=== PATIENT | female | born 1955 | race Caucasian/White ===

== ENCOUNTER → 2016-11-29 | Outpatient (CLI) | payer SELFPAY ==
--- NOTE | 2016-11-29 12:00 | RAD ---
2 view CXR: Clinical indications: Biliary cirrhosis. Comparison: May 07, 2010. Findings: Chronic interstitial lung disease is seen. No new lung infiltrate or pleural effusion or new pulmonary edema or lung mass or pneumothorax is seen. The heart size, pulmonary vasculature, mediastinum and both son are stable given AP magnification. The osseous structures appear intact. Impression: No acute radiographic abnormality is seen.
== END | disposition home or self-care (01) ==
LOC: DXRADRC 11:26
PROVIDERS: ATTEND Physician Assistant Medical
DX: K74.5 Biliary cirrhosis, unspecified (principal); J84.9 Interstitial pulmonary disease, unspecified
CPT/HCPCS: 71020

== ENCOUNTER 2017-07-05 19:12 | Inpatient (IN) | payer MEDICARE, OTHER ==
[~2017-07-05] VITALS: Ht 177.8 cm; Wt 105.8 kg
--- NOTE | 2017-07-05 19:19 | ED.ADGEN ---
Past History Past Medical History: CAD, CHF, COPD, Hypertension, Other Smoking: Cigarettes Adult General Chief Complaint Chief Complaint ".. I ve been coughing a lot more the last 3 days.. I am wore out... " HPI HPI Patient is a 62 year old female who presents with above hx and complaints dyspnea, chest pain, cough, and generalized weakness the last three days. Pt. Sats on arrival 80's patient has no home oxygen. No recent travel or specific ill contacts. Does have a history of COPD , hypertension and coronary artery disease. She has approximately 62-154-hzdx-year smoking history. Patient states she has not had productive sputum with for coughing episodes. Is having some mild mid chest tenderness with coughing and had chest pain yesterday. Patient normally follows with [facility] for care. Review of Systems Review of Systems Constitutional: Hx. fever or chills [] Eyes: Denies change in visual acuity, redness, or eye pain [] HENT: Denies nasal congestion or sore throat [] Respiratory: Hx. of cough or shortness of breath [] Cardiovascular: No additional information not addressed in HPI [] GI: Denies abdominal pain, nausea, vomiting, bloody stools or diarrhea [] : Denies dysuria or hematuria [] Musculoskeletal: Denies back pain or joint pain [] Integument: Denies rash or skin lesions [] Neurologic: Denies headache, focal weakness or sensory changes [] Endocrine: Denies polyuria or polydipsia [] All other systems were reviewed and found to be within normal limits, except as documented in this note. Family History Family History Noncontributory Current Medications Current Medications Current Medications Medications (Trade) Dose Ordered Sig/Saida Start Time Stop Time Status Last Admin Dose Admin Albuterol/ Ipratropium (Duoneb) 3 ml 1X ONCE 07/05/17 19:30 07/05/17 19:39 DC 07/05/17 20:01 3 ML Aspirin (Children'S Aspirin) 324 mg 1X ONCE 07/05/17 19:30 07/05/17 19:39 DC 07/05/17 19:30 324 MG Ceftriaxone Sodium (Rocephin) 1 gm Q24H 07/05/17 23:00 07/06/17 04:53 1 GM Enoxaparin Sodium (Lovenox 100mg Syringe) 100 mg 1X ONCE 07/05/17 19:30 07/05/17 19:39 DC 07/05/17 19:30 100 MG Furosemide (Lasix) 40 mg 1X ONCE 07/05/17 23:00 07/05/17 23:01 DC 07/06/17 00:51 40 MG Info (Anti-Coagulation Monitoring By Pharmacy) 1 each PRN DAILY PRN 07/05/17 23:00 Lactated Ringer's 1,000 ml @ 100 mls/hr Q10H 07/05/17 19:29 07/06/17 05:29 DC 07/05/17 19:29 100 MLS/HR Magnesium Sulfate 50 ml @ 25 mls/hr 1X ONCE 07/05/17 23:00 07/06/17 00:59 DC 07/06/17 00:52 25 MLS/HR Methylprednisolone Sodium Succinate (SOLU-Medrol 125MG VIAL) 125 mg 1X ONCE 07/05/17 23:00 07/05/17 23:01 DC 07/06/17 00:51 125 MG Potassium Chloride (KCl Oral Soln) 40 meq 1X ONCE 07/05/17 23:00 07/05/17 23:01 DC 07/06/17 00:52 40 MEQ Allergies Allergies Allergies Coded Allergies Type Severity Reaction Last Updated Verified propoxyphene Allergy Intermediate 07/05/17 Yes Physical Exam Physical Exam Constitutional: In acute distress, non-toxic appearance. [] HENT: Normocephalic, atraumatic, bilateral external ears normal, oropharynx moist, no oral exudates, nose rhinorrhea Eyes: PERRLA, EOMI, conjunctiva normal, no discharge. [] Neck: Normal range of motion, no tenderness, supple, no stridor. [] Cardiovascular:Heart rate regular rhythm, no murmur [] Lungs & Thorax: Bilateral breath sounds equal with scattered wheezes and rhonchi on auscultation [] Abdomen: Bowel sounds normal, soft, no tenderness, no masses, no pulsatile masses. [] Skin: Warm, dry, no erythema, no rash. [] Poor turgor Back: No tenderness, no CVA tenderness. [] Extremities: No tenderness, no cyanosis, no clubbing, ROM intact, lower leg edema. [] No cording appreciated Neurologic: Alert and oriented X 3, No gross motor or sensory function deficits , no focal deficits noted. [] Psychologic: Affect anxious ,judgement normal, mood normal. [] Current Patient Data Vital Signs Vital Signs Date Time Temp Pulse Resp B/P (MAP) Pulse Ox O2 Delivery O2 Flow Rate FiO2 07/05/17 20:03 94 Nasal Cannula 2.0 Lab Results Laboratory Tests Test 07/05/17 19:40 07/05/17 20:24 07/05/17 21:47 White Blood Count 7.1 x10^3/uL (4.0-11.0) Red Blood Count 5.38 x10^6/uL (3.50-5.40) Hemoglobin 14.5 g/dL (12.0-15.5) Hematocrit 43.6 % (36.0-47.0) Mean Corpuscular Volume 81 fL (79-100) Mean Corpuscular Hemoglobin 27 pg (25-35) Mean Corpuscular Hemoglobin Concent 33 g/dL (31-37) Red Cell Distribution Width 15.0 % (11.5-14.5) H Platelet Count 246 x10^3/uL (140-400) Neutrophils (%) (Auto) 73 % (31-73) Lymphocytes (%) (Auto) 16 % (24-48) L Monocytes (%) (Auto) 8 % (0-9) Eosinophils (%) (Auto) 2 % (0-3) Basophils (%) (Auto) 1 % (0-3) Neutrophils # (Auto) 5.2 x10^3uL (1.8-7.7) Lymphocytes # (Auto) 1.1 x10^3/uL (1.0-4.8) Monocytes # (Auto) 0.6 x10^3/uL (0.0-1.1) Eosinophils # (Auto) 0.2 x10^3/uL (0.0-0.7) Basophils # (Auto) 0.1 x10^3/uL (0.0-0.2) Segmented Neutrophils % 73 % (35-66) H Lymphocytes % 16 % (24-48) L Monocytes % 7 % (0-10) Basophils % 4 % (0-3) H Platelet Estimate Adequate (ADEQUATE) Platelet Clumps, EDTA Present Large Platelets Occ Polychromasia Slight Ovalocytes Occ Schistocytes Occ Prothrombin Time 9.9 SEC (9.4-11.4) Prothrombin Time INR 1.0 (0.9-1.1) PTT 25 SEC (23-33) D-Dimer (Cinthia) 0.57 mg/L (0.00-0.50) H Blood pH 7.48 (7.35-7.45) H Blood Gas PCO2 60 mmHg (35-45) H Blood Gas PO2 42 mmHg (80-100) *L Blood Gas HCO3 44 mmol/L (22-26) H Arterial Bld O2 Saturation (Calc) 79 % (92-99) L FiO2 21 % Troponin I Quantitative 0.040 ng/mL (0-0.055) Urine Collection Type Unknown Urine Color Straw Urine Clarity Clear Urine pH 6.5 Urine Specific [place] <=1.005 Urine Protein Neg (NEG-TRACE) Urine Glucose (UA) Neg mg/dL (NEG) Urine Ketones (Stick) Neg mg/dL (NEG) Urine Blood Neg (NEG) Urine Nitrite Neg (NEG) Urine Bilirubin Neg (NEG) Urine Urobilinogen Dipstick 1 mg/dL (0.2 mg/dL) Urine Leukocyte Esterase Neg (NEG) Urine RBC 0 /HPF (0-2) Urine WBC Occ /HPF (0-4) Urine Squamous Epithelial Cells Occ /LPF Urine Bacteria Few /HPF (0-FEW) Urine Opiates Screen Neg (NEG) Urine Methadone Screen Neg (NEG) Urine Barbiturates Neg (NEG) Urine Phencyclidine Screen Neg (NEG) Urine Amphetamine/Methamphetamine Neg (NEG) Urine Benzodiazepines Screen Neg (NEG) Urine Cocaine Screen Neg (NEG) Urine Cannabinoids Screen Neg (NEG) Urine Ethyl Alcohol Neg (NEG) Sodium Level 142 mmol/L (136-145) Potassium Level 2.4 mmol/L (3.5-5.1) *L Chloride Level 100 mmol/L (98-107) Carbon Dioxide Level 41 mmol/L (21-32) H Anion Gap 1 (6-14) L Blood Urea Nitrogen 10 mg/dL (7-20) Creatinine 0.6 mg/dL (0.6-1.0) Estimated GFR (Cockcroft-Gault) 100.6 Glucose Level 105 mg/dL (70-99) H Calcium Level 7.9 mg/dL (8.5-10.1) L Magnesium Level 1.5 mg/dL (1.8-2.4) L Total Bilirubin 0.4 mg/dL (0.2-1.0) Direct Bilirubin < 0.1 mg/dL (0.0-0.2) Aspartate Amino Transferase (AST) 13 U/L (15-37) L Alanine Aminotransferase (ALT) 14 U/L (14-59) Alkaline Phosphatase 102 U/L (46-116) Creatine Kinase 50 U/L (26-192) Creatine Kinase MB (Mass) 1.2 ng/mL (0.0-3.6) Creatine Kinase MB Relative Index 2.4 % (0-4) GR-Luy-J-Type Natriuretic Peptide 1211 pg/mL (0-124) H Total Protein 5.7 g/dL (6.4-8.2) L Albumin 2.4 g/dL (3.4-5.0) L Lipase 71 U/L (73-393) L EKG EKG My interpretation of EKG shows sinus rhythm at 85 bpm. There is left ordered axis deviation and a fascicular block. Abnormal EKG. [] Radiology/Procedures Radiology/Procedures My interpretation of chest x-ray shows[] emphysema/COPD type changes. Does appear to have a right lower lobe infiltrate or pneumonia. Does have increased cephalization consistent with CHF. CT of chest pending at time of admission. Course & Med Decision Making Course & Med Decision Making Pertinent Labs and Imaging studies reviewed. (See chart for details). Discussed presentation, testing and treatment plan with Dr. Campbell. for further evaluation and treatment. [] Final Impression Final Impression 1. Respiratory Failure[]-hypoxia and elevate CO 2 2. Right lower lobe pneumonia 3. CHF- BNP 1211 4. Hypokalemia 2.4 5. Hypo-magnesium 1,5 6. Elevated D-dimer 7. Schistocytes 8. COPD /Emphysema- exacerbation Dragon Disclaimer Dragon Disclaimer This electronic medical record was generated, in whole or in part, using a voice recognition dictation system. JUAN HERNANDEZ MD July 05, 2017 19:19
[2017-07-05] MEDS ORDERED: IV RINGERS SOLUTION,LACTATED 1,000 ML IV SCH (19:29)
[2017-07-05] MEDS ORDERED: ASPIRIN 81 MG TAB.CHEW PO ONE (19:30)
[2017-07-05] MEDS ORDERED: IPRATRPIUM/ALBUTEROL 0.5/2.5MG 3 ML NEBU. NEB ONE (19:30)
[2017-07-05] MEDS ORDERED: ENOXAPARIN ** NOTE DOSE ** SYRINGE SQ ONE (19:30)
[2017-07-05 19:52] LABS: BGAS PH 7.48 (7.35-7.45)
[2017-07-05 20:13] LABS: BASO # 0.1 x10^3/uL (0.0-0.2); BASO % 1 % (0-3); EOS # 0.2 x10^3/uL (0.0-0.7); EOS % 2 % (0-3); HEMATOCRIT 43.6 % (36.0-47.0); HEMOGLOBIN 14.5 g/dL (12.0-15.5); LYMPH # 1.1 x10^3/uL (1.0-4.8); LYMPH % 16 % (24-48); MEAN CORPUSCULAR HEMOGLOBIN 27 pg (25-35); MEAN CORPUSCULAR HGB CONC 33 g/dL (31-37); MEAN CORPUSCULAR VOLUME 81 fL (79-100); MONO # 0.6 x10^3/uL (0.0-1.1); MONO % 8 % (0-9); NEUT # 5.2 x10^3uL (1.8-7.7); NEUT % 73 % (31-73); PLATELET COUNT 246 x10^3/uL (140-400); RED BLOOD COUNT 5.38 x10^6/uL (3.50-5.40); WHITE BLOOD COUNT 7.1 x10^3/uL (4.0-11.0)
[2017-07-05 20:58] LABS: AMPHETAMINE/METHAMPHETAMINE NEG (NEG); BARBITURATES NEG (NEG); BENZODIAZEPINES NEG (NEG); CANNABINOIDS NEG (NEG); COCAINE NEG (NEG); METHADONE NEG (NEG); OPIATES NEG (NEG); PHENCYCLIDINE NEG (NEG)
[2017-07-05 21:03] LABS: BACTERIA,URINE FEW /HPF (0-FEW); BILIRUBIN,URINE NEG (NEG); CLARITY,URINE CLEAR; COLOR,URINE STRAW; GLUCOSE,URINE NEG (NEG); NITRITE,URINE NEG (NEG); RBC,URINE 0 /HPF (0-2); SQUAMOUS EPITHELIAL CELL,UR OCC /LPF; UROBILINOGEN,URINE 1 mg/dL (0.2 mg/dL); WBC,URINE OCC /HPF (0-4)
[2017-07-05 21:13] LABS: % BASOS 4 % (0-3); % LYMPHS 16 % (24-48); % MONOS 7 % (0-10); % SEGS 73 % (35-66)
[2017-07-05 21:14] LABS: PLATELET CLUMP PRESENT; PLT ESTIMATE ADEQUATE (ADEQUATE); POLYCHROMASIA SLIGHT
[2017-07-05 21:15] LABS: OVALOCYTES OCC; SCHISTOCYTES OCC
--- NOTE | 2017-07-05 22:27 | EKG ---
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
[2017-07-05 22:33] LABS: ALBUMIN 2.4 g/dL (3.4-5.0); ALK PHOS 102 U/L (46-116); ALT (SGPT) 14 U/L (14-59); ANION GAP 1 (6-14); AST (SGOT) 13 U/L (15-37); BLOOD UREA NITROGEN 10 mg/dL (7-20); CALCIUM 7.9 mg/dL (8.5-10.1); CARBON DIOXIDE 41 mmol/L (21-32); CHLORIDE 100 mmol/L (98-107); CREATININE 0.6 mg/dL (0.6-1.0); GFR 100.6; GLUCOSE 105 mg/dL (70-99); LIPASE 71 U/L (73-393); MAGNESIUM 1.5 mg/dL (1.8-2.4); SODIUM 142 mmol/L (136-145); TOTAL BILIRUBIN 0.4 mg/dL (0.2-1.0); TOTAL PROTEIN 5.7 g/dL (6.4-8.2)
[2017-07-05 22:34] LABS: DIRECT BILIRUBIN < 0.1 mg/dL (0.0-0.2)
[2017-07-05 22:35] LABS: POTASSIUM 2.4 mmol/L (3.5-5.1)
[2017-07-05] MEDS ORDERED: FUROSEMIDE 40 MG TABLET PO ONE (23:00)
[2017-07-05] MEDS ORDERED: ANTI-COAG MONITOR BY PHARMACY. MC PRN (23:00)
[2017-07-05] MEDS ORDERED: POTASSIUM CHLORIDE 20 MEQ/15 ML ORAL LIQUID. PO ONE (23:00)
[2017-07-05] MEDS ORDERED: methylPREDNISolone SOD SUCC PF 125 MG/2 ML VIAL. IV ONE (23:00)
[2017-07-05] MEDS ORDERED: MAGNESIUM SULFATE 2GM 50 ML IV ONE (23:00)
[2017-07-05] MEDS ORDERED: IOHEXOL 300 MG/ML 75 ML VIAL. IV ONE (23:15)
[2017-07-06] VITALS (7 sets, daily range): BP systolic 83–120; BP diastolic 47–71
--- NOTE | 2017-07-06 01:29 | RAD ---
PQRS Compliance Statement: One or more of the following individualized dose reduction techniques were utilized for this examination: 1. Automated exposure control 2. Adjustment of the mA and/or kV according to patient size 3. Use of iterative reconstruction technique CT CHEST WITH CONTRAST, PULMONARY ANGIOGRAM History: Respiratory failure. Shortness of air. Comparison: None. Technique: Helical CT of the chest was performed after the administration of 75 cc of Omnipaque 300 intravenous contrast according to PE protocol. Axial and coronal reconstructions were obtained. 3-D MIP images were constructed to better evaluate the pulmonary arteries. Findings: Pulmonary arteries are adequately opacified. There is no evidence of pulmonary embolism. There is no thoracic aortic dissection. Tiny hypodense nodule in the posterior left thyroid lobe. Subcentimeter mediastinal lymph nodes. There is superior pericardial recess fluid. Coronary artery disease. Cardiac size upper limits of normal. No pericardial effusion. There is small hiatal hernia. The central airways are patent. There is right lower lobe peribronchial thickening. There is moderate upper lobe centrilobular emphysema. Mild patchy consolidation and groundglass opacities in the right lower lobe. There is upper lung interlobular septal thickening. Minimal opacity with flecks of air in the left bronchus intermedius may be retained secretions or mucous. No pleural effusion or pneumothorax. 3.3 cm left hepatic lobe cyst. There are surgical clips and suture material of the stomach. No acute compression fracture of the thoracic spine. IMPRESSION: 1. There is no CT evidence of pulmonary embolus. 2. Right lower lobe bronchitis and early bronchopneumonia or atelectasis. 3. Upper lung interlobular septal thickening suggests interstitial edema. 4. Moderate upper lobe centrilobular emphysema. Electronically signed by: Erick Isidro MD (07/06/2017 1:25 AM) [place] [id number]
[2017-07-06] MEDS ORDERED: FURO-68 PO (02:08)
[2017-07-06] MEDS ORDERED: POTA10TA17 PO (02:08)
[2017-07-06] MEDS ORDERED: CHOL100013 PO (02:08)
[2017-07-06] MEDS ORDERED: RANI150T21 PO (02:08)
[2017-07-06] MEDS ORDERED: SPIR100T2 PO (02:08)
[2017-07-06] MEDS ORDERED: MULT1TAB52 PO (02:08)
[2017-07-06] MEDS ORDERED: LACT10SO PO (02:08)
[2017-07-06] MEDS: cefTRIAXone IV Push 1 GM VIAL. IVP SCH ×2 (04:53→23:28)
[2017-07-06] MEDS: IPRATRPIUM/ALBUTEROL 0.5/2.5MG 3 ML NEBU. NEB SCH ×4 (06:02→21:18)
[2017-07-06 07:13] LABS: BASO # 0.1 x10^3/uL (0.0-0.2); BASO % 1 % (0-3); EOS % 0 % (0-3); HEMATOCRIT 42.6 % (36.0-47.0); HEMOGLOBIN 13.9 g/dL (12.0-15.5); LYMPH # 0.3 x10^3/uL (1.0-4.8); LYMPH % 5 % (24-48); MEAN CORPUSCULAR HEMOGLOBIN 27 pg (25-35); MEAN CORPUSCULAR HGB CONC 33 g/dL (31-37); MEAN CORPUSCULAR VOLUME 82 fL (79-100); MONO # 0.1 x10^3/uL (0.0-1.1); MONO % 1 % (0-9); NEUT % 94 % (31-73); PLATELET COUNT 217 x10^3/uL (140-400); RED BLOOD COUNT 5.21 x10^6/uL (3.50-5.40); WHITE BLOOD COUNT 6.4 x10^3/uL (4.0-11.0)
[2017-07-06 07:14] LABS: CALCIUM 7.7 mg/dL (8.5-10.1); CREATININE 0.7 mg/dL (0.6-1.0); GFR 84.2
[2017-07-06 07:26] LABS: POTASSIUM 2.7 mmol/L (3.5-5.1)
[2017-07-06] MEDS: POTASSIUM CHLORIDE 20 MEQ TABLET.ER. PO SCH ×4 (08:04→11:05)
[2017-07-06] MEDS: ASPIRIN 81 MG TAB.CHEW PO SCH (08:04)
[2017-07-06 08:30] LABS: HYPOCHROMIA SLIGHT; PLATELET CLUMP PRESENT; PLT ESTIMATE ADEQUATE (ADEQUATE); POLYCHROMASIA PRESENT
[2017-07-06 08:32] LABS: OVALOCYTES OCC; SCHISTOCYTES OCC
[2017-07-06] MEDS ORDERED: CHOLECALCIFEROL (VITAMIN D3) 50,000 UNIT CAPSULE PO SCH (09:00)
[2017-07-06] MEDS ORDERED: ENOXAPARIN 40 MG/0.4 ML SYRINGE. SQ SCH (09:00)
[2017-07-06] MEDS ORDERED: methylPREDNISolone SOD SUCC PF 125 MG/2 ML VIAL. IV SCH (09:00)
[2017-07-06] MEDS ORDERED: ENOXAPARIN ** NOTE DOSE ** SYRINGE SQ SCH (09:00)
[2017-07-06] MEDS: LACTOBACILLUS RHAMNOSUS GG 1 CAPSULE. PO SCH ×2 (09:01→20:26)
[2017-07-06] MEDS: SPIRONOLACTONE 25 MG TABLET PO SCH (09:01)
[2017-07-06] MEDS: LACTULOSE 20 GM/30 ML SOLUTION. PO SCH ×2 (09:02→20:25)
[2017-07-06] MEDS: FAMOTIDINE 20 MG TABLET PO SCH ×2 (09:02→20:26)
[2017-07-06] MEDS: MULTIVITAMIN with MINERAL TABLET. PO SCH (09:02)
[2017-07-06] MEDS: AZITHROMYCIN 250 MG TABLET. PO SCH (09:02)
--- NOTE | 2017-07-06 09:17 | RAD ---
CHEST PA LATERAL History: Shortness of air Comparison: 11/29/2016 Findings: 2 views of the chest are submitted. There is emphysema. Degree of interstitial opacity is similar, basilar predominance. Heart size is stable, somewhat prominent. There is no pneumothorax or new lobar consolidation. There is no significant dependent pleural fluid. Impression: 1. There is emphysema. Interstitial opacity with basilar predominance is similar to November 2016 exam. Electronically signed by: Hector Ramirez MD (07/06/2017 9:13 AM) [facility]
--- NOTE | 2017-07-06 12:26 | RAD ---
Bilateral lower extremity venous Doppler dated 07/06/2017. No comparison available. Clinical data indication: Elevated d-dimer. Edema. FINDINGS: Grayscale, color-flow and spectral waveform analysis performed. Normal compressibility, phasicity and augmentation of flow throughout. No filling defects are seen. IMPRESSION: No evidence of lower extremity deep vein thrombosis. Electronically signed by: Jose Olmos MD (07/06/2017 12:23 PM) [facility] [place]
[2017-07-06] MEDS: methylPREDNISolone SOD SUCC PF 40 MG/ML VIAL. IV SCH (17:28)
--- NOTE | 2017-07-06 18:30 | HP ---
ADMIT DATE: 07/05/2017 HISTORY OF PRESENT ILLNESS: This is a 62-year-old female patient who came to the Emergency Room complaining of cough with scanty whitish sputum as well as shortness of breath, generalized weakness for the last 3 days. On arrival to the Emergency Room, her oxygen saturation was only 80% on room air. Denied any recent travel or specific ill contact. She does have history of COPD. She continued to smoke 1-2 packs a day. Denied any chest pain, chills, rigors or fever. She was extensively investigated in the Emergency Room, was found to have mildly elevated D-dimer. Had had a chest x-ray and a CT scan of the chest with PE protocol. She was admitted with right lower lobe pneumonia, COPD exacerbation and acute hypoxic respiratory failure. PAST MEDICAL HISTORY: Significant for COPD, congestive heart failure, primary biliary cirrhosis, osteoarthritis, and peripheral neuropathy. She also has morbid obesity for which she underwent gastric bypass surgery. She lost about almost 250 pounds from 400-157, although her weight has been fluctuating. PAST SURGICAL HISTORY: Significant for bypass surgery, multiple several hernia repairs, tonsillectomy, cholecystectomy, bilateral carpal tunnel release. ALLERGIES: She is allergic to DARVON and ADHESIVES. FAMILY HISTORY: She in fact has no full brothers or sisters. She does not know her biological father. Her mother at age of 84 because of congestive heart failure. SOCIAL HISTORY: She is . She lives with her granddaughter. She has 2 adopted sons. She smokes about 1-2 packs per day and does not drink alcohol. 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 REVIEW OF SYSTEMS: The patient denied any blurring of vision, cataract, glaucoma or macular degeneration. Denied any earache, tinnitus or sensorineural deafness. Denied any nosebleeds, stuffy nose or postnasal drip. Denied any sore throat, sore tongue, toothache, hoarseness of voice or difficulty swallowing. She denied any nausea, vomiting, diarrhea or constipation. Denied any hematemesis, melena or hematochezia. Denied any dysuria, frequency or hematuria. Did complain of chest pain, shortness of breath, orthopnea, and paroxysmal nocturnal dyspnea. She has cough with scanty whitish sputum. Denied any chills, rigors, or fever. Denied any dizziness, lightheadedness, or vertigo. PHYSICAL EXAMINATION: GENERAL: On arrival to the Emergency Room, there was no pallor. She is actually seemed to be almost hyperpigmented, but there is no jaundice, cyanosis, or thyromegaly. No jugular distention, but mild bilateral lower limb edema. VITAL SIGNS: Her heart rate was 86, blood pressure 136/77, temperature was 98.6, respiratory rate was 25, and oxygen saturation was 88% on room air, it improved to 94% on 2 liters of oxygen. HEAD, EYES, EARS, NOSE AND THROAT: Showed normocephalic, atraumatic. NECK: Supple. HEART: Showed normal first and second heart sounds with no gallop, rub or murmur. CHEST: Shows central trachea, equally reduced expansion, reduced air entry, vesicular breath sounds. I could not really appreciate any crepitation or rhonchi. ABDOMEN: Distended, soft, nontender. No guarding or rigidity. No organomegaly. Hernial orifice intact. Bowel sounds normal. NEUROLOGIC: She was awake, alert, responding appropriately. Cranial nerves intact. EXTREMITIES: She moves extremities without difficulty, though she is mostly wheelchair bound. LABORATORY AND DIAGNOSTIC DATA: On admission showed a white cell count 7100, hemoglobin 14.5, hematocrit 44, MCV 81 and platelet count 246,000. Manual differential shows 73% polymorphs, 16% lymphocytes and 8% monocytes. Her pH was 7.48, pCO2 of 60, pO2 42, bicarbonate of 44 and oxygen saturation was only 79% on room air. Her prothrombin time was 9.9, INR of 1, aPTT was 25. D-dimer slightly elevated at 0.57 mg/dL. Her chemistry showed that her serum sodium was 142, potassium 2.4, chloride 100, bicarbonate 41, anion gap of 1, BUN 10, creatinine 0.6, estimated GFR was 100 mL per minute. Her glucose was 105, calcium was 7.9, magnesium was 1.5. Total bilirubin, AST, ALT, alkaline phosphatase were normal. Her troponin was 0.04, beta natriuretic peptide 1200, total protein 5.7, albumin 2.4. Lipase was 71, TSH was 1.894. Urinalysis showed the urine was straw colored, clear with a pH of 6.5, specific gravity of 1.005. The urine was negative for protein, glucose, ketones, blood, nitrite, and leukocyte esterase. 0 rbc's, occasional wbc's, very few bacteria. The urine toxicology screen was negative. Her chest x-ray showed that there is emphysema, degree of interstitial opacities, similar basilar predominance. Heart size is stable, somewhat prominent. There is no pneumothorax. No lobar consolidation. There is no significant dependent pleural fluid. Given that her D-dimer was slightly elevated, she is hypoxic. CT scan of the chest with PE protocol was done, which basically showed there is no CT evidence of pulmonary embolism, right lower lobe bronchitis, early bronchopneumonia or atelectasis. Her upper lung interlobular septal thickening is suggesting interstitial edema, moderate upper lobe centrilobular emphysema. ASSESSMENT AND PLAN: So, basically, the patient was admitted with community-acquired pneumonia/bronchopneumonia, chronic obstructive pulmonary disease exacerbation, and acute hypoxic hypercapnic respiratory failure. She has multiple other medical problems including congestive heart failure, primary biliary cirrhosis, peripheral neuropathy, osteoarthritis and scoliosis, it might be contributing to her respiratory difficulty. She has also continued to smoke unfortunately 2 packs a day. Plan is to continue with IV antibiotic in the form of Zithromax as well as ceftriaxone. I will change her methylprednisolone to be given 3 times a day. We will follow her labs and symptoms, and decide the further management accordingly. BARBARA RUIZ MD DR: MARCO/tony JOB#: [id number] / [id number]
[2017-07-06] MEDS ORDERED: POTASSIUM CHLORIDE 20 MEQ TABLET.ER. PO SCH (21:00)
[2017-07-07] MEDS: methylPREDNISolone SOD SUCC PF 40 MG/ML VIAL. IV SCH ×2 (00:37→08:33)
[2017-07-07 01:00] VITALS: BP 117/61
[2017-07-07] MEDS: IPRATRPIUM/ALBUTEROL 0.5/2.5MG 3 ML NEBU. NEB SCH ×4 (03:32→15:45)
[2017-07-07] MEDS ORDERED: ALBU8.5H8 INH (03:47)
[2017-07-07] MEDS ORDERED: BUDE10.2 IH (03:47)
[2017-07-07 06:00] VITALS: BP 105/49
[2017-07-07 06:39] LABS: HEMATOCRIT 39.1 % (36.0-47.0); HEMOGLOBIN 12.3 g/dL (12.0-15.5); RED BLOOD COUNT 4.73 x10^6/uL (3.50-5.40); RED CELL DISTRIBUTION WIDTH 15.1 % (11.5-14.5); WHITE BLOOD COUNT 7.6 x10^3/uL (4.0-11.0)
[2017-07-07 06:42] LABS: ALBUMIN 2.3 g/dL (3.4-5.0); ALBUMIN/GLOBULIN RATIO 0.6 (1.0-1.7); CALCIUM 7.2 mg/dL (8.5-10.1); CREATININE 0.6 mg/dL (0.6-1.0); GFR 100.6; POTASSIUM 3.7 mmol/L (3.5-5.1); TOTAL BILIRUBIN 0.2 mg/dL (0.2-1.0)
[2017-07-07] MEDS ORDERED: BUDESONIDE 0.5 MG/2 ML NEBU NEB SCH (08:00)
[2017-07-07] MEDS: LACTULOSE 20 GM/30 ML SOLUTION. PO SCH (08:32)
[2017-07-07] MEDS: AZITHROMYCIN 250 MG TABLET. PO SCH (08:32)
[2017-07-07] MEDS: SPIRONOLACTONE 25 MG TABLET PO SCH (08:32)
[2017-07-07] MEDS: MULTIVITAMIN with MINERAL TABLET. PO SCH (08:33)
[2017-07-07] MEDS: LACTOBACILLUS RHAMNOSUS GG 1 CAPSULE. PO SCH (08:33)
[2017-07-07] MEDS: ASPIRIN 81 MG TAB.CHEW PO SCH (08:33)
[2017-07-07] MEDS: FAMOTIDINE 20 MG TABLET PO SCH (08:33)
[2017-07-07] MEDS ORDERED: ENOXAPARIN 40 MG/0.4 ML SYRINGE. SQ SCH (09:00)
[2017-07-07] MEDS ORDERED: POTASSIUM CHLORIDE 20 MEQ/15 ML ORAL LIQUID. PO SCH (09:00)
[2017-07-07 11:25] VITALS: BP 96/60
--- NOTE | 2017-07-07 12:35 | PN ---
DATE: 07/06/2017 SUBJECTIVE: The patient is resting, sitting up in bed comfortably, in no apparent respiratory distress. On questioning her, she stated that she continued to have orthopnea, cough with scanty whitish sputum. Denied any chest pain, denied any chills, rigors or fever. PHYSICAL EXAMINATION: GENERAL: When I examined her, she looked well and was clearly in no apparent respiratory distress. She was somewhat tanned, but there is no jaundice or cyanosis. No lymphadenopathy, no thyromegaly. No jugular venous distension. She has mild bilateral limb edema. VITAL SIGNS: Her heart rate was 73, blood pressure was 105/51, temperature was 99.1, respiratory rate was 14 and oxygen saturation was 94% on 3 liters of oxygen by nasal cannula. HEAD, EYES, EARS, NOSE AND THROAT: Normocephalic, atraumatic. NECK: Supple. HEART: Showed normal first and second sounds. No gallop, rub or murmur. CHEST: Shows central trachea, equally reduced expansion, reduced air entry, vesicular sounds. I could not really appreciate any crepitation or rhonchi. ABDOMEN: Slightly distended, soft. NEUROLOGIC: She is awake, alert, responding appropriately. All cranial nerves intact. EXTREMITIES: She moves extremities without difficulty, although she is mostly wheelchair bound, bedbound. Her intake over the last 24 hours was incompletely recorded. LABORATORY DATA: As of this morning showed a white cell count of 6400, hemoglobin 13.9, hematocrit 43, MCV 82 and platelet count of 217,000. Her serum sodium was 142, potassium 2.7, chloride 100, bicarbonate 40, anion gap of 2, BUN 8, creatinine 0.7, estimated GFR was 84 mL per minute. Her glucose was 128, calcium was 7.7. ASSESSMENT: 1. This is a 62-year-old female patient, who was admitted with community-acquired pneumonia/bronchopneumonia. 2. Chronic obstructive pulmonary disease exacerbation. 3. Acute hypoxic hypercapnic respiratory failure. We will continue with IV Lasix, IV Solu-Medrol, nebulized albuterol and Atrovent, IV antibiotic. She has multiple other medical problems including primary biliary cirrhosis, congestive heart failure, generalized osteoarthritis, degenerative disk disease and scoliosis as well as peripheral neuropathy. BARBARA RUIZ MD DR: MARCO/tony JOB#: [id number] / [id number]
[2017-07-07 15:00] VITALS: BP 106/53
[2017-07-07] MEDS ORDERED: CEFP200T PO (16:05)
[2017-07-07] MEDS ORDERED: AZIT250T PO (16:06)
--- NOTE | 2017-07-08 04:45 | DS ---
DATE OF DISCHARGE: 07/07/2017 HOSPITAL COURSE: The patient is a 62-year-old female patient who was admitted to the Emergency Room with a complaint of cough with scanty white sputum, with shortness of breath, generalized weakness, and on arrival she was hypoxic with oxygen saturation of only 80% on room air. She does have a history of COPD, unfortunately she continued to smoke 1-2 packs a day and was basically extensively investigated. Her D-dimer was slightly elevated, so had a CT angio of the chest, which showed that it was negative for pulmonary emboli; however, there is right lower lobe bronchitis and early bronchopneumonia and she was admitted with diagnosis of community-acquired pneumonia, COPD exacerbation, acute hypoxic respiratory failure. She was started on IV Rocephin and Zithromax together with Solu-Medrol IV and she did actually very well here. She was also extremely hypokalemic as her potassium was only 2.7. She is on Lasix 40 mg twice a day. She is also on potassium and spironolactone. Her potassium was replenished, now it is 3.7, magnesium was 2 mg/dL. She did well and a decision was made to discharge her home with home health as well as home oxygen. PHYSICAL EXAMINATION: GENERAL: On examining her today, she looked well and was clearly in no apparent respiratory distress, slightly pale, no jaundice, cyanosis or thyromegaly. No jugular venous distention. No limb edema. VITAL SIGNS: Her heart rate was 94, blood pressure 106/53, temperature was 98.8, respiratory rate 22 and oxygen saturation was 94% on 3 liters of oxygen. HEAD, EYES, EARS, NOSE AND THROAT: Normocephalic, atraumatic. NECK: Supple. HEART: Showed normal first and second heart sounds with no gallop, rub or murmur. CHEST: Clear to auscultation. No crepitation or rhonchi. ABDOMEN: Distended, soft, nontender. NEUROLOGIC: She is awake, alert, responding appropriately. All cranial nerves intact. She moves extremities without difficulty, although she can only walk for short distances with mild bilateral lower limb edema. Her intake over the last 24 hours was , no output was recorded. LABORATORY WORK: This morning showed a serum sodium 141, potassium 3.7, chloride 99, bicarbonate 40, anion gap of 2, BUN 9, creatinine 0.5, estimated GFR was 100 mL per minute. Her glucose was 139, calcium was 7.2, magnesium 2. Total bilirubin, AST, ALT, alkaline phosphatase normal. Her ammonia was less than 10. Her total protein was 6, albumin 2.3. Her white cell count was 7600, hemoglobin 12.3, hematocrit 39, MCV 83, and platelet count 226,000. Her tox screen was negative. Urinalysis is unremarkable. DISCHARGE MEDICATIONS: She was discharged home to continue on following medication: Zithromax 250 mg once a day for 7 days, cefpodoxime proxetil 200 mg twice a day for 7 days, albuterol sulfate 2 puffs every 4-6 hours, Symbicort 160/4.5 two puffs twice a day, cholecalciferol (vitamin D) 50,000 units once a week, furosemide 40 mg twice a day, lactulose 15 mL twice a day, multivitamin 1 tablet once a day, potassium citrate 20 mEq 3 times a day, ranitidine (Zantac) 150 mg p.o. b.i.d. and spironolactone 100 mg once a day. FINAL DISCHARGE DIAGNOSES: 1. Community-acquired pneumonia versus bronchopneumonia. 2. Chronic obstructive pulmonary disease exacerbation. 3. Acute hypoxic hypercapnic respiratory failure. She was discharged home on home oxygen. 4. She is also known to have primary biliary cirrhosis, congestive heart failure, osteoarthritis, peripheral neuropathy. BARBARA RUIZ MD DR: MARCO/tony JOB#: [id number] / [id number]
[2017-07-11] MEDS ORDERED: CHOLECALCIFEROL (VITAMIN D3) 50,000 UNIT CAPSULE PO SCH (09:00)
== END 2017-07-07 16:45 | disposition home health service (06) | DRG 871 ==
LOC: ER 19:12 → ICU 23:05 → 1 SOUTH 07-07 06:25
PROVIDERS: ADMIT Internal Medicine; ATTEND Internal Medicine
DX: A41.9 Sepsis, unspecified organism (principal); J18.0 Bronchopneumonia, unspecified organism; J96.01 Acute respiratory failure with hypoxia; J96.02 Acute respiratory failure with hypercapnia; I11.0 Hypertensive heart disease with heart failure; M41.9 Scoliosis, unspecified; E66.01 Morbid (severe) obesity due to excess calories; E83.42 Hypomagnesemia; I50.9 Heart failure, unspecified; K74.3 Primary biliary cirrhosis; J44.0 Chronic obstructive pulmonary disease with (acute) lower respiratory infection; J44.1 Chronic obstructive pulmonary disease with (acute) exacerbation; G62.9 Polyneuropathy, unspecified; E87.6 Hypokalemia; M15.9 Polyosteoarthritis, unspecified; I25.10 Atherosclerotic heart disease of native coronary artery without angina pectoris; F17.210 Nicotine dependence, cigarettes, uncomplicated; J40 Bronchitis, not specified as acute or chronic; R79.1 Abnormal coagulation profile; Z82.49 Family history of ischemic heart disease and other diseases of the circulatory system; Z98.84 Bariatric surgery status; Z68.33 Body mass index [BMI] 33.0-33.9, adult; Z90.89 Acquired absence of other organs; Z90.49 Acquired absence of other specified parts of digestive tract; Z88.8 Allergy status to other drugs, medicaments and biological substances; Z91.048 Other nonmedicinal substance allergy status
CPT/HCPCS: 36415; 36600; 71046; 71275; 80048; 80053; 80076; 80307; 81001; 82140; 82553; 82803; 83690; 83735; 83880; 84132; 84443; 84484; 85007; 85025; 85027; 85379; 85610; 85730; 87040; 87641; 93005; 93970; 94640; 96360; 96361; 96372; J0456; J0696; J1650; J2920; J2930; J3475; J7120; J7620; J7626; Q9967; 99285-25; G0479

== ENCOUNTER 2017-10-06 07:29 | Inpatient (IN) | payer MEDICARE ==
[~2017-10-06] VITALS: Ht 177.8 cm; Wt 93.2 kg
[2017-10-06] VITALS (10 sets, daily range): BP systolic 101–135; BP diastolic 64–72
[~2017-10-06 07:29] MED LIST: ALBU8.5H8 INH; AZIT250T PO; BUDE10.2 IH; CEFP200T PO; CHOL100013 PO; FURO-68 PO; LACT10SO PO; MULT1TAB52 PO; POTA10TA17 PO; RANI150T21 PO; SPIR100T4 PO
[2017-10-06 07:49] LABS: BGAS PH 7.35 (7.35-7.45)
[2017-10-06] MEDS ORDERED: methylPREDNISolone SOD SUCC PF 125 MG/2 ML VIAL. IV ONE (08:15)
[2017-10-06] MEDS ORDERED: IPRATRPIUM/ALBUTEROL 0.5/2.5MG 3 ML NEBU. NEB ONE (08:15)
[2017-10-06] MEDS ORDERED: FUROSEMIDE 40 MG/4 ML VIAL IVP ONE (08:15)
[2017-10-06 08:20] LABS: BASO % 0 % (0-3); EOS % 0 % (0-3); HEMATOCRIT 46.1 % (36.0-47.0); LYMPH # 0.5 x10^3/uL (1.0-4.8); LYMPH % 5 % (24-48); MEAN CORPUSCULAR HEMOGLOBIN 28 pg (25-35); MEAN CORPUSCULAR HGB CONC 33 g/dL (31-37); MEAN CORPUSCULAR VOLUME 85 fL (79-100); MONO # 0.6 x10^3/uL (0.0-1.1); MONO % 6 % (0-9); NEUT # 8.2 x10^3uL (1.8-7.7); NEUT % 89 % (31-73); PLATELET COUNT 193 x10^3/uL (140-400); RED BLOOD COUNT 5.43 x10^6/uL (3.50-5.40); RED CELL DISTRIBUTION WIDTH 15.8 % (11.5-14.5); WHITE BLOOD COUNT 9.2 x10^3/uL (4.0-11.0)
--- NOTE | 2017-10-06 08:24 | RAD ---
Examination: Single frontal view chest HISTORY: History of shortness of breath COMPARISON: 07/05/2017 FINDINGS: Low lung volumes and technique accentuate heart size and pulmonary vasculature. There is prominent appearing right hilum could be prominent appearing pulmonary artery however underlying mass is not completely excluded. Mild hyperinflated lungs. Minimal bibasilar lung airspace opacities. IMPRESSION: 1. Prominent appearing right hilum could be prominent appearing pulmonary artery or mass. Recommend cross-sectional imaging with CT for further evaluation. 2. Minimal bibasilar lung airspace opacities likely atelectasis. Electronically signed by: Prem Tang MD (10/06/2017 8:21 AM) [id number]
--- NOTE | 2017-10-06 08:36 | PHYS DOC ---
Past History Past Medical History: CAD, CHF, COPD, Hypertension, Other Past Surgical History: Other Smoking: Cigarettes Alcohol Use: None Drug Use: None Adult General Chief Complaint Chief Complaint: SHORTNESS OF BREATH HPI HPI Patient is a [ 62 ] year old female who brought in by EMS because of shortness of breath. Patient has history of COPD on 3 L of home oxygen and currently smoking complaining of shortness of breath and dry cough since this morning. Patient did not have home oxygen because of technical problems and O2 sat was reported 77% by EMS. Patient also stated that she did not take her Lasix for the last couple days. Patient was started on 4 L of nasal cannula and O2 sat increased to low 90s. History is limited because of respiratory distress. Review of Systems Review of Systems Constitutional: Denies fever or chills [] Eyes: Denies change in visual acuity, redness, or eye pain [] HENT: Denies nasal congestion or sore throat [] Respiratory: Reports cough and shortness of breath Cardiovascular: No additional information not addressed in HPI [] GI: Denies abdominal pain, nausea, vomiting, bloody stools or diarrhea [] : Denies dysuria or hematuria [] Musculoskeletal: Denies back pain or joint pain [] Integument: Denies rash or skin lesions [] Neurologic: Denies headache, focal weakness or sensory changes [] Endocrine: Denies polyuria or polydipsia [] All other systems were reviewed and found to be within normal limits, except as documented in this note. Current Medications Current Medications Current Medications Medications (Trade) Dose Ordered Sig/Saida Start Time Stop Time Status Last Admin Dose Admin Albuterol/ Ipratropium (Duoneb) 3 ml 1X ONCE 10/06/17 08:15 10/06/17 08:16 DC Furosemide (Lasix) 40 mg 1X ONCE 10/06/17 08:15 10/06/17 08:16 DC 10/06/17 08:16 40 MG Methylprednisolone Sodium Succinate (SOLU-Medrol 125MG VIAL) 125 mg 1X ONCE 10/06/17 08:15 10/06/17 08:16 DC 10/06/17 08:14 125 MG Allergies Allergies Allergies Coded Allergies Type Severity Reaction Last Updated Verified propoxyphene Allergy Intermediate 07/05/17 Yes Physical Exam Physical Exam Constitutional: Well nourished, moderate distress, non-toxic appearance, afebrile. [] HENT: Normocephalic, atraumatic, oropharynx moist, no oral exudates, nose normal. [] Eyes: PERRLA, EOMI, conjunctiva normal, no discharge. [] Neck: Normal range of motion, no tenderness, supple, no stridor. [] Cardiovascular:Heart rate regular rhythm, no murmur [] Lungs & Thorax: Respiratory distress, tachypnea, bilateral rhonchi and rales Abdomen: Bowel sounds normal, soft, no tenderness, no masses, no pulsatile masses. [] Skin: Warm, dry, no erythema, no rash. [] Back: No tenderness, no CVA tenderness. [] Extremities: No tenderness, no cyanosis, no clubbing, ROM intact, no edema. [] Neurologic: Alert and oriented X 3 but somnolent, normal motor function, normal sensory function, no focal deficits noted. [] Psychologic: Affect anxious Current Patient Data Lab Results Laboratory Tests Test 10/06/17 07:36 10/06/17 08:00 Blood pH 7.35 (7.35-7.45) Blood Gas PCO2 91 mmHg (35-45) *H Blood Gas PO2 53 mmHg (80-100) L Blood Gas HCO3 51 mmol/L (22-26) H Arterial Bld O2 Saturation (Calc) 82 % (92-99) L FiO2 40 % White Blood Count 9.2 x10^3/uL (4.0-11.0) Red Blood Count 5.43 x10^6/uL (3.50-5.40) H Hemoglobin 15.0 g/dL (12.0-15.5) Hematocrit 46.1 % (36.0-47.0) Mean Corpuscular Volume 85 fL (79-100) Mean Corpuscular Hemoglobin 28 pg (25-35) Mean Corpuscular Hemoglobin Concent 33 g/dL (31-37) Red Cell Distribution Width 15.8 % (11.5-14.5) H Platelet Count 193 x10^3/uL (140-400) Neutrophils (%) (Auto) 89 % (31-73) H Lymphocytes (%) (Auto) 5 % (24-48) L Monocytes (%) (Auto) 6 % (0-9) Eosinophils (%) (Auto) 0 % (0-3) Basophils (%) (Auto) 0 % (0-3) Neutrophils # (Auto) 8.2 x10^3uL (1.8-7.7) H Lymphocytes # (Auto) 0.5 x10^3/uL (1.0-4.8) L Monocytes # (Auto) 0.6 x10^3/uL (0.0-1.1) Eosinophils # (Auto) 0.0 x10^3/uL (0.0-0.7) Basophils # (Auto) 0.0 x10^3/uL (0.0-0.2) Ethyl Alcohol Level < 10 mg/dL (0-10) EKG EKG [] Radiology/Procedures Radiology/Procedures [][address] [address] IMAGING REPORT Signed PATIENT: ANSHU PATEL ACCOUNT: [id number] : 1955 LOCATION: ER AGE: 62 SEX: F EXAM STATUS: REG ER ORD. PHYSICIAN: REGINO BENITES MD REASON: shortness of breath PROCEDURE: PORTABLE CHEST 1V Examination: Single frontal view chest HISTORY: History of shortness of breath COMPARISON: 07/05/2017 FINDINGS: Low lung volumes and technique accentuate heart size and pulmonary vasculature. There is prominent appearing right hilum could be prominent appearing pulmonary artery however underlying mass is not completely excluded. Mild hyperinflated lungs. Minimal bibasilar lung airspace opacities. IMPRESSION: 1. Prominent appearing right hilum could be prominent appearing pulmonary artery or mass. Recommend cross-sectional imaging with CT for further evaluation. 2. Minimal bibasilar lung airspace opacities likely atelectasis. Electronically signed by: Prem Tang MD (10/06/2017 8:21 AM) [id number] DICTATED AND SIGNED BY: PREM TANG MD DATE: 10/06/17817 CC: REGINO BENITES MD; LORI VELASQUEZ ~ [address] [address] IMAGING REPORT Signed PATIENT: ANSHU PATEL ACCOUNT: [id number] : 1955 LOCATION: ER AGE: 62 SEX: F EXAM STATUS: REG ER ORD. PHYSICIAN: REGINO BENITES MD REASON: shortness of breath, abnormal chest x-ray for possible lung mass PROCEDURE: CT ANGIOGRAPHY CHEST Examination: CT angiography chest HISTORY: History of shortness of breath, congestion COMPARISON: 07/05/2017 TECHNIQUE: Axial CT angiographic images of chest were performed with IV contrast. Coronal and sagittal 3-D MIP reformats are performed Exposure: One or more of the following individualized dose reduction techniques were utilized for this examination: 1. Automated exposure control 2. Adjustment of the mA and/or kV according to patient size 3. Use of iterative reconstruction technique FINDINGS: Mild cardiomegaly. Coronary artery calcifications identified. Few prominent mediastinal lymph nodes identified with the largest measuring 1.8 cm in the pretracheal region similar to prior exam. There is mild prominent appearing right hilar lymph node measuring 1.6 cm similar to prior exam. Severe atherosclerotic calcifications identified in the origin of the left subclavian artery. Examination is limited for evaluation of pulmonary embolism as there is not much contrast within the pulmonary artery and its branches. Moderate emphysematous changes identified in the bilateral lungs. Mild septal thickening identified in the upper lung zones similar to prior exam. Minimal right lung base airspace opacities identified. There is a cystic structure identified in the left lobe of the liver probably a cyst similar to prior exam. The visualized adrenal glands demonstrate small 1.5 cm nodules measuring 15 Hounsfield units probably adenomas. Moderate degenerative changes thoracic spine. Small hiatal hernia. Surgical changes identified in the stomach. IMPRESSION: 1. Examination is nondiagnostic for pulmonary embolism as there is not enough contrast within the pulmonary artery and its branches. 2. Unchanged mediastinal and right hilar lymphadenopathy. 3. Mild right lung base airspace opacities likely atelectasis or infiltrates. 4. Moderate emphysematous changes identified in the lungs. Electronically signed by: Prem Tang MD (10/06/2017 10:16 AM) [id number] DICTATED AND SIGNED BY: PREM TANG MD DATE: 10/06/17 1007 CC: REGINO BENITES MD; LORI VELASQUEZ ~ Course & Med Decision Making Course & Med Decision Making Pertinent Labs and Imaging studies reviewed. (See chart for details) Evaluation of patient in ER showed 62-year-old female patient with history of COPD and currently smoking brought in by EMS because of respiratory distress. Patient had O2 sat of 88 to 90 on 4 L of oxygen and ABG showed PCO2 of 90. Patient refuses intubation and BiPAP but finally I BiPAP and started on BiPAP with improvement of PCO2 to 80. Patient did not have leukocytosis and elevation of lactic acid. Chest x-ray showed perihilar fullness and CT did not show any mass. Patient treated with Solu-Medrol, DuoNeb, Rocephin and her condition improved. Dr. Campbell was informed at 0837 and agreed with plan of admission of patient to ICU. [] Dragon Disclaimer Dragon Disclaimer This electronic medical record was generated, in whole or in part, using a voice recognition dictation system. Departure Departure: Impression: Primary Impression: Acute respiratory distress Additional Impressions: COPD exacerbation Carbon dioxide narcosis Hypokalemia CHF (congestive heart failure) Tobacco abuse Tobacco abuse counseling Disposition: ADMITTED INPATIENT (@0838) Condition: GUARDED Referrals: LORI VELASQUEZ (PCP) Critical Care Time Critical care time was 80 minutes exclusive of procedures. Problem Qualifiers REGINO BENITES MD Oct 06, 2017 08:36
--- NOTE | 2017-10-06 08:39 | EKG ---
[address] [address] Test Date: 2017-10-06 Test Time: 08:05:23 Pat Name: ANSHU PATEL Department: Room: Gender: F Tong Hooker: : 1955 Requested By: REGINO BENITES Order Number: [id number] Reading MD: Trent Aparicio MD Measurements Intervals [place] Rate: 91 P: -4 [place]: 154 QRS: -64 QRSD: 134 T: 17 QT: 394 QTc: 486 Interpretive Statements SINUS RHYTHM ABNORMAL LEFT AXIS DEVIATION LEFT ANTERIOR FASCICULAR BLOCK RIGHT BUNDLE BRANCH BLOCK BIFASCICULAR BLOCK NON-SPECIFIC ST/T CHANGES Electronically Signed On 10-06-2017 11:00:43 CDT by Trent Aparicio MD
[2017-10-06 08:45] LABS: ALBUMIN 2.8 g/dL (3.4-5.0); ALBUMIN/GLOBULIN RATIO 0.6 (1.0-1.7); CALCIUM 8.7 mg/dL (8.5-10.1); CREATININE 0.7 mg/dL (0.6-1.0); GFR 84.2; MAGNESIUM 1.9 mg/dL (1.8-2.4); POTASSIUM 3.3 mmol/L (3.5-5.1); TOTAL BILIRUBIN 0.5 mg/dL (0.2-1.0); TOTAL PROTEIN 7.3 g/dL (6.4-8.2)
[2017-10-06] MEDS ORDERED: IV NORMAL SALINE 50ML 50 ML ONE (09:10)
[2017-10-06] MEDS ORDERED: cefTRIAXone SODIUM 1 GM VIAL IV ONE (09:10)
[2017-10-06] MEDS ORDERED: CONTRAST GIVEN MC PRN (09:15)
[2017-10-06] MEDS ORDERED: IOHEXOL 300 MG/ML 75 ML VIAL. IV ONE (09:15)
[2017-10-06 09:23] LABS: BGAS PH 7.42 (7.35-7.45)
[2017-10-06 10:10] LABS: BARBITURATES NEG (NEG); BENZODIAZEPINES NEG (NEG); CANNABINOIDS NEG (NEG); COCAINE NEG (NEG); METHADONE NEG (NEG); OPIATES NEG (NEG); PHENCYCLIDINE NEG (NEG)
[2017-10-06 10:14] LABS: BACTERIA,URINE 0 /HPF (0-FEW); BILIRUBIN,URINE NEG (NEG); CLARITY,URINE HAZY; COLOR,URINE YELLOW; GLUCOSE,URINE NEG (NEG); HYALINE CASTS, URINE FEW /HPF; NITRITE,URINE NEG (NEG); RBC,URINE RARE /HPF (0-2); SQUAMOUS EPITHELIAL CELL,UR FEW /LPF; UROBILINOGEN,URINE 1 mg/dL (0.2 mg/dL)
[2017-10-06 10:15] LABS: AMPHETAMINE/METHAMPHETAMINE NEG (NEG)
--- NOTE | 2017-10-06 10:19 | RAD ---
Examination: CT angiography chest HISTORY: History of shortness of breath, congestion COMPARISON: 07/05/2017 TECHNIQUE: Axial CT angiographic images of chest were performed with IV contrast. Coronal and sagittal 3-D MIP reformats are performed Exposure: One or more of the following individualized dose reduction techniques were utilized for this examination: 1. Automated exposure control 2. Adjustment of the mA and/or kV according to patient size 3. Use of iterative reconstruction technique FINDINGS: Mild cardiomegaly. Coronary artery calcifications identified. Few prominent mediastinal lymph nodes identified with the largest measuring 1.8 cm in the pretracheal region similar to prior exam. There is mild prominent appearing right hilar lymph node measuring 1.6 cm similar to prior exam. Severe atherosclerotic calcifications identified in the origin of the left subclavian artery. Examination is limited for evaluation of pulmonary embolism as there is not much contrast within the pulmonary artery and its branches. Moderate emphysematous changes identified in the bilateral lungs. Mild septal thickening identified in the upper lung zones similar to prior exam. Minimal right lung base airspace opacities identified. There is a cystic structure identified in the left lobe of the liver probably a cyst similar to prior exam. The visualized adrenal glands demonstrate small 1.5 cm nodules measuring 15 Hounsfield units probably adenomas. Moderate degenerative changes thoracic spine. Small hiatal hernia. Surgical changes identified in the stomach. IMPRESSION: 1. Examination is nondiagnostic for pulmonary embolism as there is not enough contrast within the pulmonary artery and its branches. 2. Unchanged mediastinal and right hilar lymphadenopathy. 3. Mild right lung base airspace opacities likely atelectasis or infiltrates. 4. Moderate emphysematous changes identified in the lungs. Electronically signed by: Prem Tang MD (10/06/2017 10:16 AM) [id number]
[2017-10-06] MEDS ORDERED: START PACK-AZITHROMY 100MG/5ML ORAL.SUSP 15ML BOTTLE STARTER PACK PO ONE (12:15)
[2017-10-06] MEDS: SPIRONOLACTONE 25 MG TABLET PO SCH (13:00)
[2017-10-06] MEDS ORDERED: MULTIVITAMIN with MINERAL TABLET. PO SCH (13:00)
[2017-10-06] MEDS ORDERED: POTASSIUM CITRATE 10 MEQ TABLET.ER PO SCH (13:00)
[2017-10-06] MEDS: LACTULOSE 20 GM/30 ML SOLUTION. PO SCH ×2 (13:00→20:31)
--- NOTE | 2017-10-06 13:35 | HP ---
ADMIT DATE: 10/06/2017 HISTORY OF PRESENT ILLNESS: The patient is a 62-year-old female patient, who was brought to the Emergency Room with increasing shortness of breath, cough with yellowish sputum. She denied any chest pain, denied any chills, rigors or fever. She had shortness of breath, has been worse over the last 3 days and particularly worse today. She was evaluated in the Emergency Room and her blood gases showed that she was in acute hypoxic hypercapnic respiratory failure. Her chest x-ray showed that she has prominent appearing right hilum that could be prominent appearing pulmonary artery or mass and cross sectional CT scan of the chest was recommended. She has also minimal bibasilar lung airspace opacities, likely atelectasis. She was given IV ceftriaxone as well as IV Lasix, methylprednisolone and albuterol treatments, started on BiPAP and was admitted to ICU for further evaluation and treatment. PAST MEDICAL HISTORY: Significant for COPD, congestive heart failure, primary biliary cirrhosis, osteoarthritis, and peripheral neuropathy. She also has morbid obesity for which she underwent gastric bypass surgery. She lost about 250 pounds from 400-157, although her weight has been fluctuating. PAST SURGICAL HISTORY: Significant for gastric bypass surgery, multiple hernia repairs, tonsillectomy, cholecystectomy, bilateral carpal tunnel release. ALLERGIES: She is allergic to DARVON and ADHESIVES. FAMILY HISTORY: Significant for the fact that she does not have brothers or sisters. She does not know her biological father. Her mother at age of 84 because of congestive heart failure. SOCIAL HISTORY: She is . She lives with her granddaughter. She has 2 adopted sons. She smokes about 1-2 packs per day, does drink alcohol. 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 MEDICATIONS: She is currently on following medications: She is on albuterol sulfate 2 puffs every 4-6 hours, spironolactone 100 mg daily, potassium citrate 20 mEq 3 times a day, lactulose 30 mL p.o. b.i.d., furosemide 40 mg p.o. b.i.d., Symbicort 160/4.5 mcg inhaler 2 puffs twice a day, ranitidine 150 mg twice a day, cholecalciferol 50,000 international unit once a week, multivitamin 1 tablet once a day. REVIEW OF SYSTEMS: The patient denied any blurring of vision, cataract, glaucoma or macular degeneration. Denied any earache, tinnitus or sensorineural deafness. Denied any nosebleeds, stuffy nose or postnasal drip. Denied any sore throat, sore tongue, toothache, hoarseness of voice or difficulty swallowing. Denied any nausea, vomiting, diarrhea or constipation. Denied any hematemesis, melena or hematochezia. She denied any dysuria, frequency or hematuria. Did complain of shortness of breath, cough and orthopnea. She denied any chills, rigors or fever. PHYSICAL EXAMINATION: GENERAL: When I examined her, she was resting, slightly propped up in bed, clearly tachypneic. There was no pallor, jaundice, cyanosis, or thyromegaly. No jugular venous distension. No limb edema. VITAL SIGNS: Her heart rate was 96, blood pressure was 103/66, temperature was 98.2, respiratory rate was 26. Her oxygen saturation was 89% on BiPAP machine with an FiO2 of 30%. HEAD, EYES, EARS, NOSE AND THROAT: Showed normocephalic, atraumatic. NECK: Supple. HEART: Showed normal first and second heart sounds with no gallop, rub or murmur. CHEST: Showed central trachea, equally reduced expansion, reduced air entry, vesicular breath sounds. I did not really appreciate any crepitation or rhonchi. She has markedly diminished good air entry. ABDOMEN: Distended, soft, nontender. No guarding or rigidity. No organomegaly. All hernial orifice intact. Bowel sounds normal. NEUROLOGIC: She is awake, alert, responding appropriately. All cranial nerves intact. She moves extremities without difficulty. LABORATORY DATA: On admission showed a white cell count 9200, hemoglobin 15, hematocrit 46, MCV 85, and platelet count of 193,000 with a manual differential showed 89% polymorphs, 5% lymphocytes. Her initial blood gases showed a pH of 7.35, pCO2 of 91, pO2 of 53, bicarbonate 51, and oxygen saturation was 82% on FiO2 of 40%. Her prothrombin time was 10, INR of 1, aPTT was 28. Urinalysis showed the urine was yellow, hazy with a pH of 6, specific gravity of 1.015. The urine was negative for protein, glucose, ketones, blood, nitrite and leukocyte esterase. There are rare rbc's, 1-4 wbc's, and no bacteria. Her toxic screen was basically negative for opiates, methadone, barbiturates, phencyclidine, amphetamine, methamphetamine, benzodiazepine, cocaine, cannabinoids and alcohol. Her chest x-ray showed that she has a prominent appearing right hilum that could be due to prominent appearing pulmonary artery or mass. We recommended cross sectional imaging with CT for further evaluation. Minimal bibasilar lung airspace opacities, likely atelectasis. The CT scan of the chest showed that the patient has showed nondiagnostic for pulmonary embolism as there is not enough contrast within the pulmonary artery and its branches are unchanged mediastinal right hilar lymphadenopathy, mild right lung base airspace opacities, likely atelectasis or infiltrate, moderate emphysematous changes identified in the lungs. ASSESSMENT AND PLAN: The patient was admitted with acute hypoxic hypercapnic respiratory failure in a background of chronic advanced chronic obstructive pulmonary disease. She has also right lower lobe pneumonia. Other medical problems include primary biliary cirrhosis, although her coagulation tests are normal and her ammonia was only 32 with a normal range between 11 and 34 micromole per liter. She has also hypokalemia. Other medical problems include morbid obesity and probably obstructive sleep apnea. PLAN: My plan is to continue with IV antibiotic in the form of Zithromax and Rocephin. We will continue with Solu-Medrol 60 mg IV q.8 hourly. Continue with the bronchodilator. Continue with BiPAP. The patient apparently was intubated before when she was in [place] and her blood gases have dramatically worsened. She said that she was taking Xanax, although that was not listed in her medication list and that might have contributed to her respiratory failure. I will repeat her labs later on around 3:00 and decide on further management accordingly. BARBARA RUIZ MD DR: MARCO/tony JOB#: [id number] / [id number]
[2017-10-06] MEDS ORDERED: POTASSIUM CHLORIDE 20 MEQ TABLET.ER. PO SCH (14:00)
[2017-10-06] MEDS: AZITHROMYCIN 500 MG in IV NORMAL SALINE 250ML 250 ML IV SCH (14:31)
[2017-10-06] MEDS: FAMOTIDINE 20 MG TABLET PO SCH ×2 (14:31→20:31)
[2017-10-06] MEDS: methylPREDNISolone SOD SUCC PF 125 MG/2 ML VIAL. IV SCH (14:32)
[2017-10-06 15:41] LABS: BGAS PH 7.46 (7.35-7.45)
[2017-10-06] MEDS ORDERED: FUROSEMIDE 40 MG TABLET PO SCH (16:00)
[2017-10-06] MEDS: guaiFENesin 300 MG/15 ML LIQUID PO SCH ×2 (17:21→20:31)
[2017-10-06] MEDS: POTASSIUM CHLORIDE 20 MEQ/15 ML ORAL LIQUID. PO SCH (20:31)
[2017-10-06] MEDS: MONTELUKAST 10 MG TABLET. PO SCH (20:31)
[2017-10-07] VITALS (11 sets, daily range): BP systolic 100–156; BP diastolic 53–87
[2017-10-07] MEDS: methylPREDNISolone SOD SUCC PF 125 MG/2 ML VIAL. IV SCH ×4 (00:41→21:21)
[2017-10-07 01:00] LABS: BGAS PH 7.43 (7.35-7.45)
[2017-10-07 02:39] LABS: BGAS PH 7.41 (7.35-7.45)
[2017-10-07 05:01] LABS: BGAS PH 7.46 (7.35-7.45)
[2017-10-07 06:38] LABS: BASO % 0 % (0-3); EOS % 0 % (0-3); HEMATOCRIT 43.7 % (36.0-47.0); HEMOGLOBIN 14.2 g/dL (12.0-15.5); LYMPH # 0.4 x10^3/uL (1.0-4.8); LYMPH % 6 % (24-48); MEAN CORPUSCULAR HEMOGLOBIN 28 pg (25-35); MEAN CORPUSCULAR HGB CONC 33 g/dL (31-37); MEAN CORPUSCULAR VOLUME 85 fL (79-100); MONO # 0.1 x10^3/uL (0.0-1.1); MONO % 2 % (0-9); NEUT # 5.6 x10^3uL (1.8-7.7); NEUT % 92 % (31-73); PLATELET COUNT 167 x10^3/uL (140-400); RED BLOOD COUNT 5.15 x10^6/uL (3.50-5.40); RED CELL DISTRIBUTION WIDTH 16.1 % (11.5-14.5); WHITE BLOOD COUNT 6.1 x10^3/uL (4.0-11.0)
[2017-10-07 06:56] LABS: ALBUMIN 2.6 g/dL (3.4-5.0); ALBUMIN/GLOBULIN RATIO 0.6 (1.0-1.7); CALCIUM 8.6 mg/dL (8.5-10.1); CREATININE 0.6 mg/dL (0.6-1.0); GFR 100.6; TOTAL BILIRUBIN 0.3 mg/dL (0.2-1.0); TOTAL PROTEIN 6.8 g/dL (6.4-8.2)
[2017-10-07 07:01] LABS: POTASSIUM 2.8 mmol/L (3.5-5.1)
[2017-10-07] MEDS: guaiFENesin 300 MG/15 ML LIQUID PO SCH ×5 (08:32→21:21)
[2017-10-07] MEDS: MULTIVITAMINS,THERAPEUTIC 5 ML ORAL LIQUID. PO SCH (08:32)
[2017-10-07] MEDS: POTASSIUM CHLORIDE 20 MEQ/15 ML ORAL LIQUID. PO SCH ×5 (08:33→21:21)
[2017-10-07] MEDS: FAMOTIDINE 20 MG TABLET PO SCH ×2 (08:34→21:21)
[2017-10-07] MEDS: cefTRIAXone IV Push 1 GM VIAL. IVP SCH (08:34)
[2017-10-07] MEDS: SPIRONOLACTONE 25 MG TABLET PO SCH (08:34)
[2017-10-07] MEDS: CHOLECALCIFEROL (VITAMIN D3) 50,000 UNIT CAPSULE PO SCH (08:52)
[2017-10-07 11:40] LABS: BGAS PH 7.46 (7.35-7.45)
[2017-10-07] MEDS: AZITHROMYCIN 500 MG in IV NORMAL SALINE 250ML 250 ML IV SCH (13:10)
--- NOTE | 2017-10-07 18:25 | PN ---
DATE: SUBJECTIVE: The patient is sitting up in her bed, in no apparent respiratory distress. She denied any chest pain, denied any shortness of breath. She continued to have cough with scanty whitish sputum. She was on BiPAP machine and that she is now on 3 liters of oxygen, maintaining adequate saturations of 95%. OBJECTIVE: GENERAL: On examining her, she looked tanned. There is no jaundice, cyanosis, or thyromegaly. No jugular venous distension. No limb edema. VITAL SIGNS: Her heart rate was 61, blood pressure was 145/83, temperature was 98.2, respiratory rate was 28 and oxygen saturation was 95% on 3 liters of oxygen by nasal cannula. HEAD, EYES, EARS, NOSE AND THROAT: Showed normocephalic, atraumatic. NECK: Supple. HEART: Showed normal first and second heart sounds with no gallop, rub or murmur. CHEST: Shows central trachea, equally reduced expansion, reduced air entry, vesicular breath sounds with crepitations and rhonchi, mostly on the right side posteriorly. ABDOMEN: Slightly distended, soft, nontender. NEUROLOGIC: She is awake, alert, and responding appropriately. Cranial nerves are intact. She moves extremities without difficulty. She is mostly wheelchair bound. ASSESSMENT: 1. Acute hypoxic hypercapnic respiratory failure. 2. Chronic obstructive pulmonary disease exacerbation. 3. Community-acquired pneumonia. 4. Generalized osteoarthritis. 5. Morbid obesity for which she underwent gastric bypass surgery. 6. She carries also diagnosis of congestive heart failure and peripheral neuropathy. PLAN: My plan is to continue with the IV Solu-Medrol. Continue with the IV antibiotic in the form of IV ceftriaxone and Zithromax. Continue with bronchodilator. For hypokalemia, she is on spironolactone and potassium chloride. Continue with oxygen supplementation. We will repeat her blood gases around 11:30 this morning. BARBARA RUIZ MD DR: MARCO/tony JOB#: [id number] / [id number]
[2017-10-07] MEDS: MONTELUKAST 10 MG TABLET. PO SCH (21:21)
[2017-10-07] MEDS: LACTOBACILLUS RHAMNOSUS GG 1 CAPSULE. PO SCH (21:21)
[2017-10-08] VITALS (8 sets, daily range): BP systolic 115–139; BP diastolic 60–75
[2017-10-08] MEDS: methylPREDNISolone SOD SUCC PF 125 MG/2 ML VIAL. IV SCH ×2 (05:45→17:43)
[2017-10-08] MEDS: guaiFENesin 300 MG/15 ML LIQUID PO SCH ×4 (05:52→17:40)
[2017-10-08 06:10] LABS: BGAS PH 7.36 (7.35-7.45)
[2017-10-08 06:12] LABS: HEMOGLOBIN 14.3 g/dL (12.0-15.5); RED BLOOD COUNT 5.14 x10^6/uL (3.50-5.40); RED CELL DISTRIBUTION WIDTH 16.3 % (11.5-14.5); WHITE BLOOD COUNT 10.4 x10^3/uL (4.0-11.0)
[2017-10-08 06:30] LABS: ALBUMIN 2.4 g/dL (3.4-5.0); ALBUMIN/GLOBULIN RATIO 0.6 (1.0-1.7); CALCIUM 8.6 mg/dL (8.5-10.1); CREATININE 0.6 mg/dL (0.6-1.0); GFR 100.6; POTASSIUM 3.9 mmol/L (3.5-5.1); TOTAL BILIRUBIN 0.2 mg/dL (0.2-1.0); TOTAL PROTEIN 6.5 g/dL (6.4-8.2)
[2017-10-08] MEDS: SPIRONOLACTONE 25 MG TABLET PO SCH (07:43)
[2017-10-08] MEDS: FAMOTIDINE 20 MG TABLET PO SCH ×2 (07:43→21:02)
[2017-10-08] MEDS: POTASSIUM CHLORIDE 20 MEQ/15 ML ORAL LIQUID. PO SCH ×3 (07:43→21:02)
[2017-10-08] MEDS: LACTOBACILLUS RHAMNOSUS GG 1 CAPSULE. PO SCH ×2 (07:43→21:02)
[2017-10-08] MEDS: AZITHROMYCIN 500 MG in IV NORMAL SALINE 250ML 250 ML IV SCH ×3 (07:43→13:18)
[2017-10-08] MEDS: MULTIVITAMINS,THERAPEUTIC 5 ML ORAL LIQUID. PO SCH (07:43)
[2017-10-08] MEDS: cefTRIAXone IV Push 1 GM VIAL. IVP SCH (07:46)
[2017-10-08] MEDS: MODAFINIL 100 MG TABLET PO SCH (10:06)
[2017-10-08] MEDS ORDERED: CALCIUM CARBONATE 500 MG TAB.CHEW ONE (11:48)
[2017-10-08 13:56] LABS: BACTERIA,URINE 0 /HPF (0-FEW); BILIRUBIN,URINE NEG (NEG); CLARITY,URINE CLEAR; COLOR,URINE YELLOW; GLUCOSE,URINE NEG (NEG); NITRITE,URINE NEG (NEG); RBC,URINE 0 /HPF (0-2); SQUAMOUS EPITHELIAL CELL,UR MOD /LPF; UROBILINOGEN,URINE 2 mg/dL (0.2 mg/dL); WBC,URINE RARE /HPF (0-4)
[2017-10-08] MEDS: NYSTATIN TOPICAL POWDER 15GM BOTTLE. TP SCH ×2 (16:30→21:02)
[2017-10-08] MEDS: MONTELUKAST 10 MG TABLET. PO SCH (21:02)
--- NOTE | 2017-10-08 23:33 | PN ---
DATE: 10/08/2017 SUBJECTIVE: The patient is sitting in her chair comfortably, eating her lunch, in no apparent distress. She denied any chest pain. Her blood gases showed her pH was 7.36, pCO2 of 84 and pO2 of 95 on 3 liters of oxygen by nasal cannula. OBJECTIVE: GENERAL: When I examined her this afternoon, she looked well and was clearly in no apparent respiratory distress. No pallor, jaundice, cyanosis, lymphadenopathy or thyromegaly. No jugular venous distension. No lower limb edema. VITAL SIGNS: Her heart rate was 80, blood pressure 133/67, temperature was 97.8, respiratory rate was 24, and oxygen saturation was 94% on 3 liters oxygen by nasal cannula. HEAD, EYES, EARS, NOSE AND THROAT: Normocephalic, atraumatic. NECK: Supple. HEART: Showed normal first and second heart sounds with no gallop, rub or murmur. CHEST: Shows central trachea, equally reduced expansion, reduced air entry, vesicular sounds, very few scattered rhonchi, could not appreciate any crepitation. ABDOMEN: Distended, soft, nontender. No guarding or rigidity. No organomegaly. Hernial orifices intact. Bowel sounds normal. NEUROLOGIC: She is awake, alert, responding appropriately. Cranial nerves intact. She moves extremities without difficulty. She is mostly wheelchair bound; however, she managed to walk for short distances with a walker and she did manage to get out of the bed to the chair with the assistance with physical therapist. Her intake over the last 24 hours was 1190, output was 1950. LABORATORY DATA: Showed a white cell count of 10,400, hemoglobin 14, hematocrit 44, MCV 86 and platelet count of 205. Her chemistry showed a serum sodium of 142, potassium 3.9, chloride 101, bicarbonate 48, anion gap of 7, BUN 15, creatinine 0.9, estimated GFR was 100 mL per minute. Her glucose was 132, calcium was 8.6. Total bilirubin, AST, ALT, alkaline phosphatase were normal. Total protein was 6.5, albumin was 2.4. Her blood gases showed a pH of 7.36, pCO2 of 84, pO2 of 95, bicarbonate 47 and oxygen saturation was 97% on FiO2 of 36%. Her blood culture and sputum culture are so far negative. ASSESSMENT: 1. Acute hypoxic hypercapnic respiratory failure, improving. 2. Chronic obstructive pulmonary disease exacerbation. The wheezing is much improved. She has been on Singulair, IV steroids and bronchodilator. 3. Community-acquired pneumonia for which she is on Rocephin and Zithromax for generalized osteoarthritis. 4. Morbid obesity for which she underwent gastric bypass surgery. 5. She carries a diagnosis of congestive heart failure and peripheral neuropathy. PLAN: My plan is to cut down her steroids to be given twice a day and continue with IV antibiotics for now. I started her also with modafinil and we will evaluate her again tomorrow. Once her blood gases remained stable, she can be discharged home with home health. BARBARA RUIZ MD DR: MARCO/tony JOB#: [id number] / [id number]
[2017-10-09] MEDS ORDERED: guaiFENesin 300 MG/15 ML LIQUID PO PRN
[2017-10-09 00:01] VITALS: BP 127/72
[2017-10-09 06:00] VITALS: BP 127/66
[2017-10-09] MEDS: methylPREDNISolone SOD SUCC PF 125 MG/2 ML VIAL. IV SCH (06:50)
[2017-10-09] MEDS: MODAFINIL 100 MG TABLET PO SCH (07:44)
[2017-10-09] MEDS: CHOLECALCIFEROL (VITAMIN D3) 50,000 UNIT CAPSULE PO SCH (07:44)
[2017-10-09] MEDS: POTASSIUM CHLORIDE 20 MEQ/15 ML ORAL LIQUID. PO SCH ×2 (07:44→13:24)
[2017-10-09] MEDS: NYSTATIN TOPICAL POWDER 15GM BOTTLE. TP SCH (07:44)
[2017-10-09] MEDS: SPIRONOLACTONE 25 MG TABLET PO SCH (07:45)
[2017-10-09] MEDS: FAMOTIDINE 20 MG TABLET PO SCH (07:45)
[2017-10-09] MEDS: LACTOBACILLUS RHAMNOSUS GG 1 CAPSULE. PO SCH (07:45)
[2017-10-09] MEDS: MULTIVITAMINS,THERAPEUTIC 5 ML ORAL LIQUID. PO SCH (07:45)
[2017-10-09] MEDS: cefTRIAXone IV Push 1 GM VIAL. IVP SCH (07:46)
[2017-10-09 10:30] VITALS: BP 118/90
[2017-10-09 11:08] LABS: BGAS PH 7.46 (7.35-7.45)
[2017-10-09] MEDS: AZITHROMYCIN 500 MG in IV NORMAL SALINE 250ML 250 ML IV SCH (13:23)
[2017-10-09] MEDS ORDERED: AZIT250T PO (14:06)
[2017-10-09] MEDS ORDERED: CEFP200T PO (14:07)
[2017-10-09] MEDS ORDERED: MODA100T2 PO (14:08)
[2017-10-09] MEDS ORDERED: DICL100G18 TP (14:08)
[2017-10-09] MEDS ORDERED: PRED-220 PO (14:10)
--- NOTE | 2017-10-09 21:04 | DS ---
DATE OF DISCHARGE: 10/09/2017 HOSPITAL COURSE: The patient is a 62-year-old female patient who was admitted with increasing shortness of breath, cough with yellowish sputum. She denied any chest pain; denied any chills, rigors or fever. Her shortness of breath has been worsening over the last 3 days, particularly worse on the day of admission. She was evaluated in the Emergency Room and her blood gases showed that she was in acute hypoxic hypercapnic respiratory failure. Her chest x-ray showed that she has prominent appearing right hilum that could be prominent appearing pulmonary artery or mass and a cross-sectional CT scan of the chest was recommended. She also has minimal bibasilar lung airspace opacities, likely atelectasis. She was given IV ceftriaxone and started on methylprednisolone and was started on BiPAP machine and admitted to the ICU for further evaluation and treatment. Initially, she has marked carbon dioxide retention. In fact on initial admission, her pH was 7.35 and pCO2 was 91 and with the treatment of steroids and bronchodilators and IV antibiotics, she gradually improved. We did also start her on modafinil 100 mg once a day and she did very well. Her level of consciousness improved. Arrangement has been made for her to have a Trilogy at home and she was discharged home with home health. PHYSICAL EXAMINATION: GENERAL: When I saw her today, she looked well and was clearly in no apparent respiratory distress. No pallor, jaundice, cyanosis, or thyromegaly. No jugular venous distension. No lower limb edema. VITAL SIGNS: Her heart rate was 82, blood pressure 118/90, temperature was 98.3, respiratory rate was 18 and oxygen saturation was 95% on 2.5 liters of oxygen. HEAD, EYES, EARS, NOSE AND THROAT: Showed normocephalic, atraumatic. NECK: Supple. HEART: Showed normal first and second heart sounds with no gallop, rub or murmur. CHEST: Clear to auscultation. No crepitation or rhonchi. ABDOMEN: Distended, soft, nontender. NEUROLOGIC: She is definitely more awake, alert, responding appropriately. Cranial nerves intact. EXTREMITIES: She moves extremities without difficulty. She apparently is mostly wheelchair bound; however, she managed to stand up and walk with a walker for short distances. Her intake over the last 24 hours was 1340, output was 950. LABORATORY DATA: Today showed a white cell count of 10,400, hemoglobin 14, hematocrit 44, MCV 86 and platelet count 205,000. Her serum sodium was 142, potassium 3.9, chloride 101, bicarbonate 48, anion gap of 7, BUN 15, creatinine 0.6, estimated GFR was 100 mL per minute. Her glucose 132, calcium was 8.6. Total bilirubin, AST, ALT, alkaline phosphatase were normal. Her total protein 6.5, albumin 2.4. Her urinalysis was unremarkable and urine toxicology was negative. Her blood cultures and sputum cultures are both negative. DISCHARGE MEDICATIONS: The patient was discharged home to continue on following medication: cefpodoxime 200 mg twice a day for 5 days, Zithromax 250 mg once a day for 5 days; tapering course of steroids 40 mg once a day for 3 days, 30 mg once a day for 3 days, 20 mg once a day for 3 days, and 10 mg once a day for 3 days. She was also started on modafinil 100 mg once a day and Voltaren gel 4 grams to the affected shoulders 4 times a day. Other medications include albuterol sulfate 2 puffs every 4-6 hours, Symbicort 160/4.5 two puffs twice a day, vitamin D3 50,000 once a week, furosemide 40 mg twice a day, lactulose 30 mL twice a day, multivitamin 1 tablet once a day, potassium citrate 20 mEq 3 times a day, ranitidine for Zantac 150 mg twice a day, spironolactone 100 mg daily. FINAL DISCHARGE DIAGNOSES: 1. Acute on chronic hypoxic hypercapnic respiratory failure, improving. 2. Chronic obstructive pulmonary disease exacerbation. 3. Community-acquired pneumonia for which she is treated with Rocephin and Zithromax. 4. Generalized osteoarthritis. 5. Morbid obesity. 6. Congestive heart failure and peripheral neuropathy. BARBARA RUIZ MD DR: MARCO/tony JOB#: [id number] / [id number]
== END 2017-10-09 14:30 | disposition home health service (06) | DRG 871 ==
LOC: ER 07:29 → ICU 08:44 → ER 10:45
PROVIDERS: ADMIT Internal Medicine; ATTEND Internal Medicine
PROC: 5A09357 Assistance with Respiratory Ventilation, Less than 24 Consecutive Hours, Continuous Positive Airway Pressure (ICD-10-PCS; principal; 2017-10-06)
PROC: 5A09357 Assistance with Respiratory Ventilation, Less than 24 Consecutive Hours, Continuous Positive Airway Pressure (ICD-10-PCS; 2017-10-07)
DX: A41.9 Sepsis, unspecified organism (principal); J18.9 Pneumonia, unspecified organism; J96.21 Acute and chronic respiratory failure with hypoxia; J96.22 Acute and chronic respiratory failure with hypercapnia; J44.0 Chronic obstructive pulmonary disease with (acute) lower respiratory infection; E87.2 Acidosis; J44.1 Chronic obstructive pulmonary disease with (acute) exacerbation; E66.01 Morbid (severe) obesity due to excess calories; E87.6 Hypokalemia; F17.210 Nicotine dependence, cigarettes, uncomplicated; G62.9 Polyneuropathy, unspecified; I11.0 Hypertensive heart disease with heart failure; I25.10 Atherosclerotic heart disease of native coronary artery without angina pectoris; I50.9 Heart failure, unspecified; K74.3 Primary biliary cirrhosis; M15.9 Polyosteoarthritis, unspecified; Z82.49 Family history of ischemic heart disease and other diseases of the circulatory system; Z98.84 Bariatric surgery status; Z99.81 Dependence on supplemental oxygen; Z88.8 Allergy status to other drugs, medicaments and biological substances; Z71.6 Tobacco abuse counseling; Z90.89 Acquired absence of other organs; Z68.29 Body mass index [BMI] 29.0-29.9, adult; Z79.899 Other long term (current) drug therapy
CPT/HCPCS: 36415; 36600; 71045; 71275; 80053; 80307; 81001; 82140; 82553; 82803; 83605; 83735; 83880; 84484; 85025; 85027; 85610; 85730; 87040; 87070; 87205; 87641; 93005; 94640; 94660; 96365; 96375; G0480; J0456; J0696; J1940; J2930; J7050; J7620; 99285-25; G0479